=== PATIENT | male | born 1970 | race African-American/Black ===

== ENCOUNTER 2017-03-08 09:09 | Emergency (ER) | payer SELFPAY ==
[~2017-03-08] VITALS: Ht 185.4 cm; Wt 86.2 kg
[~2017-03-08 09:09] MED LIST: NORCO 5-325 TA1 EACH ORAL; TAMIFLU75 MG ORAL; UNOBMED
[2017-03-08 09:27] VITALS: BP 138/83
--- NOTE | 2017-03-08 09:50 | Emergency Room Report ---
History of Present Illness General Chief Complaint: Medication Refill Source: Patient Present Illness HPI Patient states he is out of his glyburide. He has a history of diabetes. He states that he is not working and so has not seen a primary care physician because he does not have medical insurance. He has no other complaints. He otherwise feels well. Allergies: Coded Allergies: ASPIRIN (Verified Allergy, Severe, Anaphylaxis, 09/09/13) Patient History Past Medical History: see triage record, DM Social History: Denies: alcohol use, drug use, smoking Reviewed Nursing Documentation: PMH: Agreed, PSxH: Agreed Nursing Documentation-PMH Hx Diabetes: Yes Review of Systems All Other Systems: negative except mentioned in HPI Physical Exam Vital Signs Date Time Temp Pulse Resp B/P Pulse Ox O2 Delivery O2 Flow Rate FiO2 03/08/17 09:13 98.1 93 18 136/85 95 Room Air Sp02 EP Interpretation: reviewed, normal General Appearance: no apparent distress, alert, GCS 15, non-toxic Head: normocephalic, atraumatic Eyes: bilateral eye PERRL, bilateral eye normal inspection ENT: hearing grossly normal, normal pharynx, no angioedema, normal voice Neck: full range of motion, supple/symm/no masses Respiratory: no respiratory distress, no retraction, no accessory muscle use, speaking full sentences Rectal: deferred Musculoskeletal: back normal, gait/station normal, normal range of motion, non- tender Neurologic: alert, oriented x3, responsive, motor strength/tone normal, sensory intact, speech normal Psychiatric: judgement/insight normal, memory normal, mood/affect normal, no suicidal/homicidal ideation Skin: normal color, no rash, warm/dry, well hydrated Medical Decision Making Diagnostic Impression: Primary Impression: Encounter for medication refill ER Course Patient presents for medication refill. He was also given a list of the local low-cost/free clinics. She is also instructed to apply for medical. Overall, the patient is well appearing. Patient has normal vital signs and physical exam is normal without any red flags. The patient has some means of obtaining feedings because he has an iphone with service and is well dressed. He was given a prescription for glyburide. He was unsure of the dose. He is given return precautions and followup instructions. Last Vital Signs Date Time Temp Pulse Resp B/P Pulse Ox O2 Delivery O2 Flow Rate FiO2 03/08/17 09:27 98.0 96 17 138/83 96 Room Air Disposition: HOME, SELF-CARE Condition: Stable Referrals: NOT CHOSEN IPA/,REFERRING (PCP) Patient Instructions: Medicine Refill at the Emergency Department JOE SALDAÑA D.O. Mar 08, 2017 09:50
[2017-03-08] MEDS ORDERED: GLYBURIDE5 MG ORAL ×2 (09:51→09:59)
[2017-03-08 10:07] VITALS: BP 138/83
== END 2017-03-08 10:07 | disposition home or self-care (01) ==
LOC: EMR 09:29
DX: Z76.0 Encounter for issue of repeat prescription (principal); E11.9 Type 2 diabetes mellitus without complications
CPT/HCPCS: 99284